=== PATIENT | male | born 1975 | race Hispanic/Latino ===

== ENCOUNTER 2022-08-05 07:07 | Inpatient (IN) | payer BC, SELFPAY ==
[2022-08-05] MEDS ORDERED: Nitroglycerin 2% Ointment 1 INCH/1 GM Packet ONE (07:27)
[2022-08-05 07:53] LABS: #Eosinphils 0.2 thou/uL (0.0-0.7); #Monocytes 0.6 thou/uL (0.11-0.59); #Neutrophils 11.4 thou/uL (1.40-6.50); %Basophils 0.2 % (0.0-1.0); %Eosinophils 1.2 % (0.0-10.0); %Lymphocytes 7.3 % (21.0-51.0); %Monocytes 4.3 % (0.0-10.0); Hemoglobin 12.8 g/dL (14.0-18.0); Mean Corpuscular HGB CONC 33.5 g/dL (32.0-36.0); Mean Corpuscular Hemoglobin 36.3 pg (27.0-31.0); Platelet Count 265 10x3/uL (130-400); RBC Distribution Width 17.8 % (11.5-14.5); Red Blood Cell (RBC) Count 3.53 mill/uL (4.70-6.10); White Blood Cell (WBC) Count 13.1 10x3/uL (4.8-10.8)
[2022-08-05 08:16] LABS: MDiff Complete? YES; Macrocytosis SLIGHT = 6-15 cells (100X) (0-5/hpf); Platelet Morphology Comment Appears Adequate; Polychromasia SLIGHT = 2-3 cells (100X) (0-2/hpf); Target Cells SLIGHT = 2-5 cells (100X) (0-1/hpf)
[2022-08-05 08:18] LABS: Potassium 7.1 mmol/L (3.5-5.1)
[2022-08-05 08:30] LABS: CKMB 2.7 ng/mL (0-6.6)
[2022-08-05 08:40] LABS: ALT (SGPT) 8 U/L (8-55); AST (SGOT) 19 U/L (5-34); Albumin 4.1 g/dL (3.5-5.0); Alkaline Phosphatase 83 U/L (40-110); Anion Gap 23 mmol/L (10-20); BUN (Urea Nitrogen) 77 mg/dL (8.9-20.6); Bilirubin, Total 0.5 mg/dL (0.2-1.2); Calc. Creatinine Clearance 0 mL/min (70-130); Calcium 8.9 mg/dL (7.8-10.44); Carbon Dioxide 22 mmol/L (22-29); Chloride 96 mmol/L (98-107); Estimated GFR 5; Globulin 3.3 g/dL (2.4-3.5); Glucose 162 mg/dL (70-105); Lipase 140 U/L (8-78); Protein, Total 7.4 g/dL (6.0-8.3); Sodium 134 mmol/L (136-145)
[2022-08-05] MEDS ORDERED: Dextrose 50% Abboject 50 ML SYRINGE ONE ×3 (08:44→10:16)
[2022-08-05] MEDS ORDERED: Sodium Bicarb 50 MEQ/50 ML VIAL ONE (08:44)
[2022-08-05] MEDS ORDERED: Insulin Regular 300 UNITS/3 ML VIAL ONE (08:44)
[2022-08-05] MEDS ORDERED: Calcium Chloride 1 GM/10 ML Abboject SYRINGE ONE (08:44)
[2022-08-05 08:58] LABS: Magnesium 2.9 mg/dL (1.6-2.6)
[2022-08-05 09:06] LABS: Prothrombin Time 13.8 sec (12.0-14.7)
[2022-08-05] MEDS ORDERED: Dextrose 5% in Water 1,000 ML IV PRN (10:43)
[2022-08-05] MEDS ORDERED: HumaLOG 300 UNITS/3 ML VIAL SC PRN (10:43)
[2022-08-05] MEDS ORDERED: Acetaminophen 325 MG TAB PO PRN (10:43)
[2022-08-05] MEDS ORDERED: Dextrose 50% Abboject 50 ML SYRINGE SLOW IVP PRN (10:43)
[2022-08-05] MEDS ORDERED: Ondansetron PF 4 MG/2 ML Vial IVP PRN (10:43)
[2022-08-05 11:12] LABS: Hep B Core Total Ab Non-Reactive (NonReactive); Hep B Core Total Index 0.06 S/CO (0-0.79); Hep B Surf Ag Non-Reactive S/CO (NonReactive); Hep C IgG Ab Non-Reactive (NonReactive); Hep C Index 0.13 S/CO (0-0.79)
[2022-08-05 11:21] LABS: Hep B Surf AB Reactive (NonReactive)
[2022-08-05 11:43] LABS: SARS-CoV-2 NAA Rapid Test Not Detected (NotDetected)
[2022-08-05] MEDS: Sevelamer Carbonate 800 MG TAB PO SCH ×2 (11:52→17:22)
[2022-08-05] MEDS: NIFEdipine XL 60 MG TAB PO SCH (20:55)
[2022-08-05] MEDS: Carvedilol 25 MG TAB PO SCH (20:56)
[2022-08-06 07:35] LABS: #Eosinphils 0.1 thou/uL (0.0-0.7); #Lymphocytes 1.1 thou/uL (1.20-3.40); #Monocytes 0.5 thou/uL (0.11-0.59); #Neutrophils 3.5 thou/uL (1.40-6.50); %Basophils 0.5 % (0.0-1.0); %Eosinophils 1.7 % (0.0-10.0); %Lymphocytes 21.2 % (21.0-51.0); %Monocytes 9.9 % (0.0-10.0); %Neutrophils 66.8 % (42.0-75.0); Hemoglobin 12.5 g/dL (14.0-18.0); Mean Corpuscular HGB CONC 32.4 g/dL (32.0-36.0); Platelet Count 222 10x3/uL (130-400); RBC Distribution Width 17.6 % (11.5-14.5); Red Blood Cell (RBC) Count 3.57 mill/uL (4.70-6.10); White Blood Cell (WBC) Count 5.2 10x3/uL (4.8-10.8)
[2022-08-06 07:53] LABS: Anion Gap 19 mmol/L (10-20); BUN (Urea Nitrogen) 38 mg/dL (8.9-20.6); BUN/Creatinine Ratio 4.66; Calc. Creatinine Clearance 11 mL/min (70-130); Calcium 9.1 mg/dL (7.8-10.44); Carbon Dioxide 23 mmol/L (22-29); Chloride 98 mmol/L (98-107); Estimated GFR 8; Glucose 76 mg/dL (70-105); Potassium 5.4 mmol/L (3.5-5.1); Sodium 135 mmol/L (136-145)
[2022-08-06] MEDS: NIFEdipine XL 60 MG TAB PO SCH ×2 (09:06→20:30)
[2022-08-06] MEDS: Aspirin Chewable 81 MG TAB PO SCH (09:07)
[2022-08-06] MEDS: Carvedilol 25 MG TAB PO SCH ×2 (09:07→20:30)
[2022-08-06] MEDS: Sevelamer Carbonate 800 MG TAB PO SCH ×3 (09:07→18:25)
[2022-08-06] MEDS ORDERED: Heparin 10,000 UNITS/ 10 ML VIAL ONE (10:07)
[2022-08-06] MEDS ORDERED: hydrALAZINE 25 MG TAB PO SCH (15:00)
[2022-08-06] MEDS: Heparin 5,000 UNITS/ML VIAL SC SCH (20:30)
[2022-08-06] MEDS: Minoxidil 2.5 MG TAB PO SCH (20:31)
[2022-08-06] MEDS ORDERED: Minoxidil 10 MG TAB PO SCH (21:00)
[2022-08-07 07:27] VITALS: TEMP 98
[2022-08-07] MEDS: Minoxidil 2.5 MG TAB PO SCH (09:20)
[2022-08-07] MEDS: Sevelamer Carbonate 800 MG TAB PO SCH ×2 (09:20→11:30)
[2022-08-07] MEDS: Heparin 5,000 UNITS/ML VIAL SC SCH ×2 (09:20→14:56)
[2022-08-07] MEDS: NIFEdipine XL 60 MG TAB PO SCH (09:20)
[2022-08-07] MEDS: Carvedilol 25 MG TAB PO SCH (09:20)
[2022-08-07] MEDS: Aspirin Chewable 81 MG TAB PO SCH (09:20)
[2022-08-07 09:22] VITALS: BP 156/96
[2022-08-07 10:10] VITALS: BMI 20.5
[2022-08-07 11:11] LABS: Anion Gap 16 mmol/L (10-20); BUN (Urea Nitrogen) 35 mg/dL (8.9-20.6); BUN/Creatinine Ratio 5.61; Calc. Creatinine Clearance 13 mL/min (70-130); Calcium 9.2 mg/dL (7.8-10.44); Carbon Dioxide 25 mmol/L (22-29); Chloride 100 mmol/L (98-107); Estimated GFR 10; Glucose 90 mg/dL (70-105); Phosphorus 4.1 mg/dL (2.3-4.7); Sodium 136 mmol/L (136-145)
[2022-08-07] MEDS ORDERED: Minoxidil 2.5 MG TAB PO SCH (13:00)
[2022-08-07] MEDS ORDERED: Minoxidil 10 MG TAB PO SCH (21:00)
== END 2022-08-07 18:23 | disposition home or self-care (01) | DRG 280 ==
LOC: EDBD 07:07 → ERS 07:07 → IMCU/EMU 10:36
PROVIDERS: ADMIT Internal Medicine; ATTEND Internal Medicine
PROC: 6A4Z0ZZ Hypothermia, Single (ICD-10-PCS; principal; 2022-08-05)
PROC: 5A1D70Z Performance of Urinary Filtration, Intermittent, Less than 6 Hours Per Day (ICD-10-PCS; 2022-08-05)
DX: I13.2 Hypertensive heart and chronic kidney disease with heart failure and with stage 5 chronic kidney disease, or end stage renal disease (principal); I21.A1 Myocardial infarction type 2; J96.01 Acute respiratory failure with hypoxia; N18.6 End stage renal disease; E87.20 Acidosis, unspecified; E87.1 Hypo-osmolality and hyponatremia; E87.5 Hyperkalemia; E78.5 Hyperlipidemia, unspecified; E16.2 Hypoglycemia, unspecified; D63.1 Anemia in chronic kidney disease; Z20.822 Contact with and (suspected) exposure to COVID-19; I08.1 Rheumatic disorders of both mitral and tricuspid valves; I16.0 Hypertensive urgency; I50.9 Heart failure, unspecified; Z99.2 Dependence on renal dialysis
CPT/HCPCS: 36415; 36416; 71045; 80053; 80069; 82553; 83605; 83690; 83735; 83880; 84145; 84443; 84484; 85025; 85610; 85730; 86704; 87040; 93005; 93306; 94644; J1644; J1650; J1815; J1956; J7611; J7999; U0002

== ENCOUNTER 2022-11-03 22:50 | Emergency (ER) | payer BC ==
[2022-11-04 02:04] LABS: #Eosinphils 0.1 thou/uL (0.0-0.7); #Lymphocytes 0.9 thou/uL (1.20-3.40); #Monocytes 0.5 thou/uL (0.11-0.59); #Neutrophils 4.8 thou/uL (1.40-6.50); %Basophils 0.5 % (0.0-1.0); %Eosinophils 1.9 % (0.0-10.0); %Lymphocytes 14.8 % (21.0-51.0); %Monocytes 8.1 % (0.0-10.0); %Neutrophils 74.7 % (42.0-75.0); Mean Corpuscular HGB CONC 34.9 g/dL (32.0-36.0); Mean Corpuscular Hemoglobin 33.5 pg (27.0-31.0); Mean Corpuscular Volume 96.1 fl (78.0-98.0); Mean Platelet Volume 8.4 fL (7.4-10.4); Platelet Count 140 10x3/uL (130-400); Red Blood Cell (RBC) Count 2.97 mill/uL (4.70-6.10); White Blood Cell (WBC) Count 6.4 10x3/uL (4.8-10.8)
[2022-11-04 02:26] LABS: ALT (SGPT) 15 U/L (8-55); AST (SGOT) 25 U/L (5-34); Albumin 3.8 g/dL (3.5-5.0); Alkaline Phosphatase 58 U/L (40-110); Anion Gap 20 mmol/L (10-20); BUN (Urea Nitrogen) 72 mg/dL (8.9-20.6); Bilirubin, Total 0.5 mg/dL (0.2-1.2); Calc. Creatinine Clearance 0 mL/min (70-130); Calcium 8.7 mg/dL (7.8-10.44); Carbon Dioxide 25 mmol/L (22-29); Chloride 99 mmol/L (98-107); Estimated GFR 5; Globulin 3.1 g/dL (2.4-3.5); Glucose 88 mg/dL (70-105); Magnesium 2.7 mg/dL (1.6-2.6); Potassium 5.1 mmol/L (3.5-5.1); Protein, Total 6.9 g/dL (6.0-8.3); Sodium 139 mmol/L (136-145)
[2022-11-04] MEDS ORDERED: Ondansetron ODT 4 MG TAB ONE (04:20)
== END 2022-11-04 04:23 | disposition home or self-care (01) ==
LOC: ERS 22:50
DX: N18.6 End stage renal disease (principal); Z99.2 Dependence on renal dialysis; Z79.899 Other long term (current) drug therapy
CPT/HCPCS: 36415; 71045; 80053; 83735; 85025; 93005; Q0162